=== PATIENT | female | born 1950 | race Caucasian/White ===

== ENCOUNTER 2022-05-03 15:53 | Observation (INO) | payer MEDICAID, OTHER ==
[2022-05-03] MEDS ORDERED: Sodium Chloride 0.9% 10 ML FLUSH Syringe IV PRN (17:30)
[2022-05-03 18:36] LABS: Absolute Neutrophil Ct (ANC) 6.44 x10^3/uL (1.4-6.9); Basophil (Absolute #) 0.04 x10^3/uL (0-0.4); Eosinophil % 1.9 % (0.00-5.0); Eosinophil (Absolute #) 0.17 x10^3/uL (0-0.5); Hematocrit 31.7 % (35-47); Lymphocyte (Absolute #) 1.86 x10^3/uL (1.0-4.6); Lymphocytes % 20.3 % (24.0-44.0); Mean Corpuscular Hemoglobin 20.5 pg (26-32); Mean Corpuscular Hgb Concent. 28.4 g/dL (32-36); Mean Platelet Volume 10.6 fL (7.5-11.0); Monocyte (Absolute #) 0.61 x10^3/uL (0.0-1.3); Monocytes % 6.7 % (0.0-12.0); Neutrophil % 70.4 % (36.0-66.0); Platelet Count 395 x10^3/uL (150-450); Red Cell Distribution Width 17.4 % (11.5-14.0); White Blood Count 9.2 x10^3/uL (4.0-10.5)
[2022-05-03 18:51] LABS: Appearance CLEAR (CLEAR)
[2022-05-03 18:52] LABS: Bilirubin NEGATIVE (NEGATIVE); Glucose >=1000 mg/dL (NEGATIVE); Ketones TRACE (NEGATIVE); Protein,Urine Dip 30 (Negative); RBC NEGATIVE Ery/ul (0-5); Urobilinogen 1 mg/dL (0-1)
[2022-05-03 18:53] LABS: Dipstick done @ ? MAIN LAB; Nitrite NEGATIVE (NEGATIVE)
[2022-05-03 18:56] LABS: Epithelial Cells RARE /HPF (FEW); Hyaline Casts 0-2 /LPF (0-2); Mucus SLIGHT /HPF (NEGATIVE); RBC 0-2 /HPF (0-2); WBC 0-2 /HPF (0-5)
[2022-05-03 18:59] LABS: Urine Cultured Indicated? ORDERED SEPARATELY
[2022-05-03 19:12] LABS: INFLUENZA A NEGATIVE (NEGATIVE); INFLUENZA B NEGATIVE (NEGATIVE); RESPIRATORY SYNCTIAL VIRUS NEGATIVE (Negative); SARS-CoV-2 Xpert Express NEGATIVE (NEGATIVE)
[2022-05-03 19:20] LABS: ALBUMIN 3.8 g/dL (3.5-5.0); ALKALINE PHOSPHATASE 97 U/L (38-126); ANION GAP 16.9 MEQ/L (5-15); BLOOD UREA NITROGEN 14 mg/dL (7-17); CHLORIDE 97 mmol/L (98-107); Calcium 9.4 mg/dL (8.4-10.2); Carbon Dioxide 25 mmol/L (22-30); EST GLOMERULAR FILTRATION RATE > 60.0 ML/MIN; Glucose 295 mg/dL (74-106); Potassium 4.9 mmol/L (3.5-5.1); SGOT/AST 21 U/L (14-36); SGPT/ALT 15 U/L (0-35); SODIUM 134 mmol/L (137-145); Total Protein 7.1 g/dL (6.3-8.2)
[2022-05-03 19:22] LABS: Slide Review 1 YES
[2022-05-03] MEDS: Lasix 40 MG/4 ML IV SCH (20:56)
[2022-05-03] MEDS ORDERED: ZOCOR 20MG PO SCH (22:00)
[2022-05-03] MEDS ORDERED: Cozaar 50 MG PO SCH (22:00)
[2022-05-03] MEDS: ATARAX 25 MG PO SCH (22:28)
[2022-05-03] MEDS: HUMALOG SQ PRN (22:29)
[2022-05-03] MEDS: Lantus Insulin SQ SCH (22:30)
[2022-05-03] MEDS: Sodium Chloride 0.9% 10 ML FLUSH Syringe IV SCH (22:31)
[2022-05-04 05:36] LABS: ALBUMIN 3.6 g/dL (3.5-5.0); ALKALINE PHOSPHATASE 87 U/L (38-126); ANION GAP 10.5 MEQ/L (5-15); BLOOD UREA NITROGEN 18 mg/dL (7-17); CHLORIDE 95 mmol/L (98-107); Calcium 8.8 mg/dL (8.4-10.2); Carbon Dioxide 30 mmol/L (22-30); Creatinine 1 0.63 mg/dL (0.52-1.04); EST GLOMERULAR FILTRATION RATE > 60.0 ML/MIN; Glucose 356 mg/dL (74-106); Potassium 4.1 mmol/L (3.5-5.1); SGOT/AST 17 U/L (14-36); SGPT/ALT 14 U/L (0-35); SODIUM 131 mmol/L (137-145); Total Protein 7.2 g/dL (6.3-8.2)
[2022-05-04] MEDS: Sodium Chloride 0.9% 10 ML FLUSH Syringe IV SCH ×2 (06:26→14:26)
[2022-05-04] MEDS: HUMALOG SQ PRN ×3 (08:07→17:36)
--- NOTE | 2022-05-04 08:09 | PCM.CONS ---
Podiatry HPI - Consult Date of Consultation Date: 05/04/22 Reason for Consult: Bilateral diabetic foot wounds Consulting Provider: VINEET FRANCIS DPM - [facility] History of Present Illness: Leann is a very pleasant 71-year-old female who is seen at bedside this a.m. with her daughter at chair side. Leann speaks very little Montserratian and most of subjective history has been obtained from her daughter. Patient indicates she has had a longstanding history of ulcerations to the distal tip of the toes to the right and left feet. Patient was seen in quick care for some infected ulcerations at the distal tip of the right hallux where there was purulence increase in warmth and a full-thickness wound to the tip of the toe. From there patient was referred to her primary care who took x-rays which demonstrated some indications of osteolytic bone lesions to the distal tip of digits 1 and 2 suggestive of osteomyelitis. Patient's primary care called and patient was sent for direct admit. Patient was seen this a.m. demonstrating no indications of sepsis and no complaints of constitutional symptoms. Patient indicates that there has been longstanding history of ulceration to the tip of the toe which tend to heal and recur over and over again. Patient is unsure if there has been an infection in the past. She currently denies any constitutional symptoms of infection. She denies any other pedal complaints. Language barrier limits subjective examination Medications & Allergies Home Medications: Home Medication List Atorvastatin Calcium [Lipitor 20MG Tablet] 20 mg PO HS 05/03/22 [History Confirmed 05/03/22] Glipizide 2.5 mg [Glucotrol Xl 2.5 MG] 2.5 mg PO BID 05/03/22 [History Confirmed 05/03/22] Insulin Aspart [Novolog] 1 unit SQ TID 05/03/22 [History Confirmed 05/03/22] Insulin Glargine,Hum.rec.anlog [Lantus] 40 unit SQ BID 05/03/22 [History Confirmed 05/03/22] Losartan Potassium [Cozaar] 25 mg PO BID 05/03/22 [History Confirmed 05/03/22] Metformin HCl 500 mg [Glucophage 500 MG] 1,000 mg PO BIDWM 05/03/22 [History Confirmed 05/03/22] hydrOXYzine HCL [Hydroxyzine HCl] 50 mg PO BID 05/03/22 [History Confirmed 05/03/22] Furosemide 20 mg [Lasix 20 mg] 20 mg PO DAILY #30 tablet 05/04/22 [Rx] Levofloxacin [Levofloxacin 500 MG Tablet] 500 mg PO DAILY 10 Days #10 tablet 05/04/22 [Rx] Metoprolol Tartrate 50 mg [Lopressor 50 MG] 50 mg PO BID 05/04/22 [History Confirmed 05/04/22] Potassium Chloride 10 meq PO DAILY #30 tab 05/04/22 [Rx] Allergies/Adverse Reactions: Allergies Allergy/AdvReac Type Severity Reaction Status Date / Time No Known Drug Allergies Allergy Unverified 05/03/22 18:25 - Past Medical History Past Medical History: Yes Cardiac History: Hypertension Endocrine Medical History: Diabetes Type I, Diabetes Type II - Female History Are you now?: No - Social History Smoking Status: Never smoker Physical Exam - General General Appearance: no apparent distress, lethargy - Neuro Neurologic: Epicritic and protopathic (Absent) - Vascular Peripheral Pulses: Posterior tibialis: 0, Dorsalis-Pedis: 2+ Capillary Refill Time: < 3 seconds Varicosities: Negtive Edema: Pitting Edema Degree: 1+ Skin: Supple, not atrophic - Muscular Digital Deformity: hammer toe (Digits 2 through 4 with adductovarus rotation of digits 4 and 5) Joint ROM: Adequate ROM to MTPJ Equinus: Gastorocnemius equinus - Narrative Narrative Physical Exam: Podiatry Physical Exam No wound to second digit of the right foot. Wound right foot with measurements of 1.5 x 1.5. Mild periwound erythema. No indications of cellulitis of the to e. Fibrotic tissue 90% of the wound with granular edge. No hyperkeratotic rim. Results - Labs Lab/Micro Results: Lab Results-Last 24 Hours 05/03/22 05/03/22 05/03/22 Range/Units 18:00 18:00 18:30 WBC 9.2 (4.0-10.5) x10^3/uL RBC 4.40 (4.1-5.4) x10^6/uL Hgb 9.0 L (12.0-16.0) g/dL Hct 31.7 L (35-47) % MCV 72.0 L (78-100) fL MCH 20.5 L (26-32) pg MCHC 28.4 L (32-36) g/dL RDW 17.4 H (11.5-14.0) % Plt Count 395 (150-450) x10^3/uL MPV 10.6 (7.5-11.0) fL Gran % 70.4 H (36.0-66.0) % Immature Gran % (Auto) 0.3 (0.00-0.4) % Nucleat RBC Rel Count 0.0 (0.00-0.1) % Eos # (Auto) 0.17 (0-0.5) x10^3/uL Immature Gran # (Auto) 0.03 (0.00-0.03) x10^3u/L Absolute Lymphs (auto) 1.86 (1.0-4.6) x10^3/uL Absolute Monos (auto) 0.61 (0.0-1.3) x10^3/uL Absolute Nucleated RBC 0.00 (0.00-0.01) x10^3u/L Lymphocytes % 20.3 L (24.0-44.0) % Monocytes % 6.7 (0.0-12.0) % Eosinophils % 1.9 (0.00-5.0) % Basophils % 0.4 (0.0-0.4) % Absolute Granulocytes 6.44 (1.4-6.9) x10^3/uL Basophils # 0.04 (0-0.4) x10^3/uL Sodium (137-145) mmol/L Potassium (3.5-5.1) mmol/L Chloride (98-107) mmol/L Carbon Dioxide (22-30) mmol/L Anion Gap (5-15) MEQ/L BUN (7-17) mg/dL Creatinine (0.52-1.04) mg/dL Estimated GFR ML/MIN Glucose (74-106) mg/dL POC Glucometer (74 to 106) mg/dL Hemoglobin A1c 9.54 H (4.5-6.0) % Calcium (8.4-10.2) mg/dL Total Bilirubin (0.2-1.3) mg/dL AST (14-36) U/L ALT (0-35) U/L Alkaline Phosphatase (38-126) U/L NT-Pro-B Natriuret Pep (0-900) pg/mL Serum Total Protein (6.3-8.2) g/dL Albumin (3.5-5.0) g/dL Urinalys Dipstick Clnc Urine Color (YELLOW) Urine Appearance (CLEAR) Urine pH (5-6) Ur Specific [place] (1.005-1.025) POC Urine Protein Conf (Negative) Urine Ketones (NEGATIVE) Urine Nitrite (NEGATIVE) Urine Bilirubin (NEGATIVE) Urine Urobilinogen (0-1) mg/dL Urine Leukocytes (NEGATIVE) Urine WBC (Auto) (0-5) /HPF Urine RBC (Auto) (0-2) /HPF U Hyaline Cast (Auto) (0-2) /LPF U Epithel Cells (Auto) (FEW) /HPF Urine Bacteria (Auto) (NEGATIVE) /HPF Urine RBC (0-5) Sarbjit/ul Urine Mucus (Auto) (NEGATIVE) /HPF Ur Culture Indicated? Urine Glucose (NEGATIVE) mg/dL Influenza Type A Ag NEGATIVE (NEGATIVE) Influenza Type B Ag NEGATIVE (NEGATIVE) RSV (PCR) NEGATIVE (Negative) SARS-CoV-2 (PCR) NEGATIVE (NEGATIVE) Slides for Path Review YES 05/03/22 05/03/22 05/03/22 Range/Units 18:30 18:45 21:04 WBC (4.0-10.5) x10^3/uL RBC (4.1-5.4) x10^6/uL Hgb (12.0-16.0) g/dL Hct (35-47) % MCV (78-100) fL MCH (26-32) pg MCHC (32-36) g/dL RDW (11.5-14.0) % Plt Count (150-450) x10^3/uL MPV (7.5-11.0) fL Gran % (36.0-66.0) % Immature Gran % (Auto) (0.00-0.4) % Nucleat RBC Rel Count (0.00-0.1) % Eos # (Auto) (0-0.5) x10^3/uL Immature Gran # (Auto) (0.00-0.03) x10^3u/L Absolute Lymphs (auto) (1.0-4.6) x10^3/uL Absolute Monos (auto) (0.0-1.3) x10^3/uL Absolute Nucleated RBC (0.00-0.01) x10^3u/L Lymphocytes % (24.0-44.0) % Monocytes % (0.0-12.0) % Eosinophils % (0.00-5.0) % Basophils % (0.0-0.4) % Absolute Granulocytes (1.4-6.9) x10^3/uL Basophils # (0-0.4) x10^3/uL Sodium 134 L (137-145) mmol/L Potassium 4.9 (3.5-5.1) mmol/L Chloride 97 L (98-107) mmol/L Carbon Dioxide 25 (22-30) mmol/L Anion Gap 16.9 H (5-15) MEQ/L BUN 14 (7-17) mg/dL Creatinine 0.50 L (0.52-1.04) mg/dL Estimated GFR > 60.0 ML/MIN Glucose 295 H (74-106) mg/dL POC Glucometer 295 H (74 to 106) mg/dL Hemoglobin A1c (4.5-6.0) % Calcium 9.4 (8.4-10.2) mg/dL Total Bilirubin 0.30 (0.2-1.3) mg/dL AST 21 (14-36) U/L ALT 15 (0-35) U/L Alkaline Phosphatase 97 (38-126) U/L NT-Pro-B Natriuret Pep (0-900) pg/mL Serum Total Protein 7.1 (6.3-8.2) g/dL Albumin 3.8 (3.5-5.0) g/dL Urinalys Dipstick Clnc MAIN LAB Urine Color YELLOW (YELLOW) Urine Appearance CLEAR (CLEAR) Urine pH 6.0 (5-6) Ur Specific [place] 1.020 (1.005-1.025) POC Urine Protein Conf 30 (Negative) Urine Ketones TRACE (NEGATIVE) Urine Nitrite NEGATIVE (NEGATIVE) Urine Bilirubin NEGATIVE (NEGATIVE) Urine Urobilinogen 1 (0-1) mg/dL Urine Leukocytes NEGATIVE (NEGATIVE) Urine WBC (Auto) 0-2 (0-5) /HPF Urine RBC (Auto) 0-2 (0-2) /HPF U Hyaline Cast (Auto) 0-2 (0-2) /LPF U Epithel Cells (Auto) RARE (FEW) /HPF Urine Bacteria (Auto) NONE (NEGATIVE) /HPF Urine RBC NEGATIVE (0-5) Sarbjit/ul Urine Mucus (Auto) SLIGHT (NEGATIVE) /HPF Ur Culture Indicated? ORDERED SEPARATELY Urine Glucose >=1000 (NEGATIVE) mg/dL Influenza Type A Ag (NEGATIVE) Influenza Type B Ag (NEGATIVE) RSV (PCR) (Negative) SARS-CoV-2 (PCR) (NEGATIVE) Slides for Path Review 05/04/22 05/04/22 05/04/22 Range/Units 05:02 05:02 07:16 WBC (4.0-10.5) x10^3/uL RBC (4.1-5.4) x10^6/uL Hgb (12.0-16.0) g/dL Hct (35-47) % MCV (78-100) fL MCH (26-32) pg MCHC (32-36) g/dL RDW (11.5-14.0) % Plt Count (150-450) x10^3/uL MPV (7.5-11.0) fL Gran % (36.0-66.0) % Immature Gran % (Auto) (0.00-0.4) % Nucleat RBC Rel Count (0.00-0.1) % Eos # (Auto) (0-0.5) x10^3/uL Immature Gran # (Auto) (0.00-0.03) x10^3u/L Absolute Lymphs (auto) (1.0-4.6) x10^3/uL Absolute Monos (auto) (0.0-1.3) x10^3/uL Absolute Nucleated RBC (0.00-0.01) x10^3u/L Lymphocytes % (24.0-44.0) % Monocytes % (0.0-12.0) % Eosinophils % (0.00-5.0) % Basophils % (0.0-0.4) % Absolute Granulocytes (1.4-6.9) x10^3/uL Basophils # (0-0.4) x10^3/uL Sodium 131 L (137-145) mmol/L Potassium 4.1 (3.5-5.1) mmol/L Chloride 95 L (98-107) mmol/L Carbon Dioxide 30 (22-30) mmol/L Anion Gap 10.5 (5-15) MEQ/L BUN 18 H (7-17) mg/dL Creatinine 0.63 (0.52-1.04) mg/dL Estimated GFR > 60.0 ML/MIN Glucose 356 H (74-106) mg/dL POC Glucometer 365 H (74 to 106) mg/dL Hemoglobin A1c (4.5-6.0) % Calcium 8.8 (8.4-10.2) mg/dL Total Bilirubin 0.40 (0.2-1.3) mg/dL AST 17 (14-36) U/L ALT 14 (0-35) U/L Alkaline Phosphatase 87 (38-126) U/L NT-Pro-B Natriuret Pep 440 (0-900) pg/mL Serum Total Protein 7.2 (6.3-8.2) g/dL Albumin 3.6 (3.5-5.0) g/dL Urinalys Dipstick Clnc Urine Color (YELLOW) Urine Appearance (CLEAR) Urine pH (5-6) Ur Specific [place] (1.005-1.025) POC Urine Protein Conf (Negative) Urine Ketones (NEGATIVE) Urine Nitrite (NEGATIVE) Urine Bilirubin (NEGATIVE) Urine Urobilinogen (0-1) mg/dL Urine Leukocytes (NEGATIVE) Urine WBC (Auto) (0-5) /HPF Urine RBC (Auto) (0-2) /HPF U Hyaline Cast (Auto) (0-2) /LPF U Epithel Cells (Auto) (FEW) /HPF Urine Bacteria (Auto) (NEGATIVE) /HPF Urine RBC (0-5) Sarbjit/ul Urine Mucus (Auto) (NEGATIVE) /HPF Ur Culture Indicated? Urine Glucose (NEGATIVE) mg/dL Influenza Type A Ag (NEGATIVE) Influenza Type B Ag (NEGATIVE) RSV (PCR) (Negative) SARS-CoV-2 (PCR) (NEGATIVE) Slides for Path Review Accuchecks Date 05/04/22 Time 07:35 Time 22:00 Assessment/Plan (1) Osteomyelitis of right foot Current Visit: Yes Status: Acute Qualifiers: Osteomyelitis type: other acute Qualified Code(s): M86.171 - Other acute osteomyelitis, right ankle and foot Assessment & Plan: Initial patient examination and evaluation. Radiographs reviewed demonstrating osteomyelitic appearance of digits 1 and 2 of the right right foot at the distal tips. Currently there is no wound to the distal tip of the right toe which leads me to believe that this issue is chronic and pressure related and the soft tissue is subsequently healed. Patient does have hammertoes to digits 2 through 5 to the bilateral lower extremity for this reason recommendation for flexor tenotomy was suggested in order to alleviate the pressure. Once again it was stressed that that this will not eradicate the infection however could potentially take out the pressure to the tip of the toe and as a result prevent further ulceration from taking place. If infection stems from the bone to the soft tissue there is nothing to stop this at this time. With assessment of the hallux assessment was made and the wound was probed which probe directly to the bone and just past the distal phalanx of the hallux. At this time recommendation was made for a aggressive incision and drainage with bone debridement and allowing for the wound to be open over the course of the next week in order for infection to drain out and p.o. antibiotics. Patient and daughter are amenable at this time to this plan. Patient is agreeable to a procedure at bedside at this time as she is largely neuropathic and nonseptic. Consent for flexor tenotomy of the second digit right foot as well as incision and drainage and bone debridement of the hallux right foot. Consent is signed and scanned into [place] from paper chart. At this time the right lower extremity was prepped and draped in the typical sterile fashion and lowered onto the surgical field a 10 cc injection was injected into the second digit of the right foot and an additional 10 cc injection of one-to-one mixture of 1% lidocaine plain 0.5% bupivacaine plain was injected into the hallux in a hallux block fashion for a total of 20 cc of local anesthetic following adequate time for local anesthesia to take place a 18-gauge needle was utilized to perform the flexor tenotomy of the second digit Kelikian test was performed in order to assess if there is further contracture of the second digit which was not appreciated at this time. Dressings were applied to this digit in order to prevent transfer of infection at this time a cotton tip applicator was utilized to probe the wound to the hallux which was then deemed inadequate for just a bone biopsy due to the purulent drainage which was cultured immediately and handed off the field for assessment at this time a 15 blade was utilized to make a 3-1 fishmouth incision at the distal tip of the toe extending approximately 3 cm across opening up the distal aspect of the toe and rongeuring out the distal phalanx and hopefully any of the infectious process along with the toe at this time copious amounts of sterile saline were utilized to flush the surgical site bone was sent for pathological and microbiological assessment in order to guide antibiotic regimen going forward. Following this trauma sutures were utilized with 3-0 nylon in order to coapt the edges of the wound and allowing a central defect for infection to continue to drain over the course of the next several days at this time a dressing consisting of Betadine Adaptic 4 x 4 Curlex and Rishi was applied to the hallux and secured along the midfoot. Postoperative orders as indicated in the patient's discharge chart consisting of: 1dressing changes daily iodine Adaptic 4 x 4 Yasemin and Coban 2stitches to remain clean dry and intact with no soaking of the wound site 3full weightbearing to the right lower extremity in surgical sandal 4p.o. levofloxacin 500 mg daily for 10 days 5return for reassessment in 1 week's time and possible delayed primary closure of the wound in clinic Patient okay for discharge from my standpoint as long as all criteria met and medicine agrees with DC at this time. 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
[2022-05-04] MEDS ORDERED: Lantus Insulin SQ SCH (10:00)
[2022-05-04] MEDS ORDERED: Cozaar 50 MG PO SCH (10:00)
[2022-05-04] MEDS: Lantus Insulin SQ SCH (10:02)
[2022-05-04] MEDS: Lasix 40 MG/4 ML IV SCH (10:02)
[2022-05-04] MEDS: ATARAX 25 MG PO SCH (10:02)
[2022-05-04] MEDS ORDERED: Lopressor 50 MG PO SCH ×3 (11:47→22:00)
[2022-05-04 12:24] VITALS: O2SAT 97
--- NOTE | 2022-05-04 13:15 | PCM.HP ---
History of Present Illness - Chief Complaint Chief Complaint: Osteomyelitis of toe,DM,Diabetic Foot Wounds History of Present Illness: is a 71 year old female pt with no local MD with diabetes and CHF who was admitted directly for osteomyelitis. She is visiting her daughter and noted a pinpoint area on her R great toe two days ago; by yesterday it had enlarged, had some pus on it and they took pt to . She had XR done and was found to have osteomyelitis. The INSURANCE SALES SUPERVISOR called me and we determined pt should be admitted for further w/u and treatment. I spoke with Dr. Agarwal, podiatry, and he asked that we not start the pt on antibiotics until he could possibly do a bedside biopsy. Also deferred MRI. Pt had edematous legs, so was given lasix 40mg IV on admission; will be repeated this morning. Her renal function remains nl. She denies sensation to her feet and is having no pain. Pt does not speak [place] (speaks Welsh). Her daughter was present in the room to translate. - Review of Systems Constitutional: No Fever Cardiac: Edema Skin: Other (great toe changes as in HPI) All Other Systems: Reviewed and Negative Medications & Allergies Home Medications: Home Medication List Atorvastatin Calcium [Lipitor 20MG Tablet] 20 mg PO HS 05/03/22 [History Confirmed 05/03/22] Glipizide 2.5 mg [Glucotrol Xl 2.5 MG] 2.5 mg PO BID 05/03/22 [History Confirmed 05/03/22] Insulin Aspart [Novolog] 1 unit SQ TID 05/03/22 [History Confirmed 05/03/22] Insulin Glargine,Hum.rec.anlog [Lantus] 40 unit SQ BID 05/03/22 [History Confirmed 05/03/22] Losartan Potassium [Cozaar] 25 mg PO BID 05/03/22 [History Confirmed 05/03/22] Metformin HCl 500 mg [Glucophage 500 MG] 1,000 mg PO BIDWM 05/03/22 [History Confirmed 05/03/22] cephALEXin [Cephalexin] 500 mg PO TID 05/03/22 [History Confirmed 05/03/22] hydrOXYzine HCL [Hydroxyzine HCl] 50 mg PO BID 05/03/22 [History Confirmed 05/03/22] Metoprolol Tartrate 50 mg [Lopressor 50 MG] 50 mg PO BID 05/04/22 [History Confirmed 05/04/22] Allergies/Adverse Reactions: Allergies Allergy/AdvReac Type Severity Reaction Status Date / Time No Known Drug Allergies Allergy Unverified 05/03/22 18:25 - Past Medical History Past Medical History: Yes Cardiac History: Hypertension Endocrine Medical History: Diabetes Type I, Diabetes Type II - Female History Are you now?: No - Social History Smoking Status: Never smoker - Physical Exam Vital Signs: Vital Signs - 24 hr Temp Pulse Resp BP Pulse Ox 05/04/22 12:00 97.9 F 84 16 145/65 97 05/04/22 07:34 98.2 F 79 16 137/65 98 05/04/22 04:00 97.1 F 81 18 126/60 95 05/04/22 00:00 97.1 F 83 19 113/57 99 05/03/22 20:00 97.3 F 85 17 138/61 99 05/03/22 18:35 97.8 F 86 18 153/65 99 General Appearance: no apparent distress, alert, obese Neurologic Exam: oriented x 3, cooperative, normal mood/affect Eye Exam: eyes nml inspection Ears, Nose, Throat Exam: moist mucous membranes Neck Exam: normal inspection, No lymphadenopathy, No thyromegaly Respiratory Exam: normal breath sounds, lungs clear, No crackles/rales, No rhonchi, No wheezing Cardiovascular Exam: regular rate/rhythm, normal heart sounds, No murmur Gastrointestinal/Abdomen Exam: soft, normal bowel sounds, No tenderness, No distention, No mass, No guarding, No rebound Back Exam: normal inspection, No rash Extremity Exam: other (R foot, great toe with distal lesion approx 3 cm with white surrounding skin. L great toe with small distal lesion) Skin Exam: warm, dry, No rash Results - Labs Lab/Micro Results: Lab Results-Last 24 Hours 05/03/22 05/03/22 05/03/22 Range/Units 18:00 18:00 18:30 WBC 9.2 (4.0-10.5) x10^3/uL RBC 4.40 (4.1-5.4) x10^6/uL Hgb 9.0 L (12.0-16.0) g/dL Hct 31.7 L (35-47) % MCV 72.0 L (78-100) fL MCH 20.5 L (26-32) pg MCHC 28.4 L (32-36) g/dL RDW 17.4 H (11.5-14.0) % Plt Count 395 (150-450) x10^3/uL MPV 10.6 (7.5-11.0) fL Gran % 70.4 H (36.0-66.0) % Immature Gran % (Auto) 0.3 (0.00-0.4) % Nucleat RBC Rel Count 0.0 (0.00-0.1) % Eos # (Auto) 0.17 (0-0.5) x10^3/uL Immature Gran # (Auto) 0.03 (0.00-0.03) x10^3u/L Absolute Lymphs (auto) 1.86 (1.0-4.6) x10^3/uL Absolute Monos (auto) 0.61 (0.0-1.3) x10^3/uL Absolute Nucleated RBC 0.00 (0.00-0.01) x10^3u/L Lymphocytes % 20.3 L (24.0-44.0) % Monocytes % 6.7 (0.0-12.0) % Eosinophils % 1.9 (0.00-5.0) % Basophils % 0.4 (0.0-0.4) % Absolute Granulocytes 6.44 (1.4-6.9) x10^3/uL Basophils # 0.04 (0-0.4) x10^3/uL Sodium (137-145) mmol/L Potassium (3.5-5.1) mmol/L Chloride (98-107) mmol/L Carbon Dioxide (22-30) mmol/L Anion Gap (5-15) MEQ/L BUN (7-17) mg/dL Creatinine (0.52-1.04) mg/dL Estimated GFR ML/MIN Glucose (74-106) mg/dL POC Glucometer (74 to 106) mg/dL Hemoglobin A1c 9.54 H (4.5-6.0) % Calcium (8.4-10.2) mg/dL Total Bilirubin (0.2-1.3) mg/dL AST (14-36) U/L ALT (0-35) U/L Alkaline Phosphatase (38-126) U/L NT-Pro-B Natriuret Pep (0-900) pg/mL Serum Total Protein (6.3-8.2) g/dL Albumin (3.5-5.0) g/dL Urinalys Dipstick Clnc Urine Color (YELLOW) Urine Appearance (CLEAR) Urine pH (5-6) Ur Specific [place] (1.005-1.025) POC Urine Protein Conf (Negative) Urine Ketones (NEGATIVE) Urine Nitrite (NEGATIVE) Urine Bilirubin (NEGATIVE) Urine Urobilinogen (0-1) mg/dL Urine Leukocytes (NEGATIVE) Urine WBC (Auto) (0-5) /HPF Urine RBC (Auto) (0-2) /HPF U Hyaline Cast (Auto) (0-2) /LPF U Epithel Cells (Auto) (FEW) /HPF Urine Bacteria (Auto) (NEGATIVE) /HPF Urine RBC (0-5) Sarbjit/ul Urine Mucus (Auto) (NEGATIVE) /HPF Ur Culture Indicated? Urine Glucose (NEGATIVE) mg/dL Influenza Type A Ag NEGATIVE (NEGATIVE) Influenza Type B Ag NEGATIVE (NEGATIVE) RSV (PCR) NEGATIVE (Negative) SARS-CoV-2 (PCR) NEGATIVE (NEGATIVE) Slides for Path Review YES 05/03/22 05/03/22 05/03/22 Range/Units 18:30 18:45 21:04 WBC (4.0-10.5) x10^3/uL RBC (4.1-5.4) x10^6/uL Hgb (12.0-16.0) g/dL Hct (35-47) % MCV (78-100) fL MCH (26-32) pg MCHC (32-36) g/dL RDW (11.5-14.0) % Plt Count (150-450) x10^3/uL MPV (7.5-11.0) fL Gran % (36.0-66.0) % Immature Gran % (Auto) (0.00-0.4) % Nucleat RBC Rel Count (0.00-0.1) % Eos # (Auto) (0-0.5) x10^3/uL Immature Gran # (Auto) (0.00-0.03) x10^3u/L Absolute Lymphs (auto) (1.0-4.6) x10^3/uL Absolute Monos (auto) (0.0-1.3) x10^3/uL Absolute Nucleated RBC (0.00-0.01) x10^3u/L Lymphocytes % (24.0-44.0) % Monocytes % (0.0-12.0) % Eosinophils % (0.00-5.0) % Basophils % (0.0-0.4) % Absolute Granulocytes (1.4-6.9) x10^3/uL Basophils # (0-0.4) x10^3/uL Sodium 134 L (137-145) mmol/L Potassium 4.9 (3.5-5.1) mmol/L Chloride 97 L (98-107) mmol/L Carbon Dioxide 25 (22-30) mmol/L Anion Gap 16.9 H (5-15) MEQ/L BUN 14 (7-17) mg/dL Creatinine 0.50 L (0.52-1.04) mg/dL Estimated GFR > 60.0 ML/MIN Glucose 295 H (74-106) mg/dL POC Glucometer 295 H (74 to 106) mg/dL Hemoglobin A1c (4.5-6.0) % Calcium 9.4 (8.4-10.2) mg/dL Total Bilirubin 0.30 (0.2-1.3) mg/dL AST 21 (14-36) U/L ALT 15 (0-35) U/L Alkaline Phosphatase 97 (38-126) U/L NT-Pro-B Natriuret Pep (0-900) pg/mL Serum Total Protein 7.1 (6.3-8.2) g/dL Albumin 3.8 (3.5-5.0) g/dL Urinalys Dipstick Clnc MAIN LAB Urine Color YELLOW (YELLOW) Urine Appearance CLEAR (CLEAR) Urine pH 6.0 (5-6) Ur Specific [place] 1.020 (1.005-1.025) POC Urine Protein Conf 30 (Negative) Urine Ketones TRACE (NEGATIVE) Urine Nitrite NEGATIVE (NEGATIVE) Urine Bilirubin NEGATIVE (NEGATIVE) Urine Urobilinogen 1 (0-1) mg/dL Urine Leukocytes NEGATIVE (NEGATIVE) Urine WBC (Auto) 0-2 (0-5) /HPF Urine RBC (Auto) 0-2 (0-2) /HPF U Hyaline Cast (Auto) 0-2 (0-2) /LPF U Epithel Cells (Auto) RARE (FEW) /HPF Urine Bacteria (Auto) NONE (NEGATIVE) /HPF Urine RBC NEGATIVE (0-5) Sarbjit/ul Urine Mucus (Auto) SLIGHT (NEGATIVE) /HPF Ur Culture Indicated? ORDERED SEPARATELY Urine Glucose >=1000 (NEGATIVE) mg/dL Influenza Type A Ag (NEGATIVE) Influenza Type B Ag (NEGATIVE) RSV (PCR) (Negative) SARS-CoV-2 (PCR) (NEGATIVE) Slides for Path Review 05/04/22 05/04/22 05/04/22 Range/Units 05:02 05:02 07:16 WBC (4.0-10.5) x10^3/uL RBC (4.1-5.4) x10^6/uL Hgb (12.0-16.0) g/dL Hct (35-47) % MCV (78-100) fL MCH (26-32) pg MCHC (32-36) g/dL RDW (11.5-14.0) % Plt Count (150-450) x10^3/uL MPV (7.5-11.0) fL Gran % (36.0-66.0) % Immature Gran % (Auto) (0.00-0.4) % Nucleat RBC Rel Count (0.00-0.1) % Eos # (Auto) (0-0.5) x10^3/uL Immature Gran # (Auto) (0.00-0.03) x10^3u/L Absolute Lymphs (auto) (1.0-4.6) x10^3/uL Absolute Monos (auto) (0.0-1.3) x10^3/uL Absolute Nucleated RBC (0.00-0.01) x10^3u/L Lymphocytes % (24.0-44.0) % Monocytes % (0.0-12.0) % Eosinophils % (0.00-5.0) % Basophils % (0.0-0.4) % Absolute Granulocytes (1.4-6.9) x10^3/uL Basophils # (0-0.4) x10^3/uL Sodium 131 L (137-145) mmol/L Potassium 4.1 (3.5-5.1) mmol/L Chloride 95 L (98-107) mmol/L Carbon Dioxide 30 (22-30) mmol/L Anion Gap 10.5 (5-15) MEQ/L BUN 18 H (7-17) mg/dL Creatinine 0.63 (0.52-1.04) mg/dL Estimated GFR > 60.0 ML/MIN Glucose 356 H (74-106) mg/dL POC Glucometer 365 H (74 to 106) mg/dL Hemoglobin A1c (4.5-6.0) % Calcium 8.8 (8.4-10.2) mg/dL Total Bilirubin 0.40 (0.2-1.3) mg/dL AST 17 (14-36) U/L ALT 14 (0-35) U/L Alkaline Phosphatase 87 (38-126) U/L NT-Pro-B Natriuret Pep 440 (0-900) pg/mL Serum Total Protein 7.2 (6.3-8.2) g/dL Albumin 3.6 (3.5-5.0) g/dL Urinalys Dipstick Clnc Urine Color (YELLOW) Urine Appearance (CLEAR) Urine pH (5-6) Ur Specific [place] (1.005-1.025) POC Urine Protein Conf (Negative) Urine Ketones (NEGATIVE) Urine Nitrite (NEGATIVE) Urine Bilirubin (NEGATIVE) Urine Urobilinogen (0-1) mg/dL Urine Leukocytes (NEGATIVE) Urine WBC (Auto) (0-5) /HPF Urine RBC (Auto) (0-2) /HPF U Hyaline Cast (Auto) (0-2) /LPF U Epithel Cells (Auto) (FEW) /HPF Urine Bacteria (Auto) (NEGATIVE) /HPF Urine RBC (0-5) Sarbjit/ul Urine Mucus (Auto) (NEGATIVE) /HPF Ur Culture Indicated? Urine Glucose (NEGATIVE) mg/dL Influenza Type A Ag (NEGATIVE) Influenza Type B Ag (NEGATIVE) RSV (PCR) (Negative) SARS-CoV-2 (PCR) (NEGATIVE) Slides for Path Review 05/04/22 Range/Units 11:33 WBC (4.0-10.5) x10^3/uL RBC (4.1-5.4) x10^6/uL Hgb (12.0-16.0) g/dL Hct (35-47) % MCV (78-100) fL MCH (26-32) pg MCHC (32-36) g/dL RDW (11.5-14.0) % Plt Count (150-450) x10^3/uL MPV (7.5-11.0) fL Gran % (36.0-66.0) % Immature Gran % (Auto) (0.00-0.4) % Nucleat RBC Rel Count (0.00-0.1) % Eos # (Auto) (0-0.5) x10^3/uL Immature Gran # (Auto) (0.00-0.03) x10^3u/L Absolute Lymphs (auto) (1.0-4.6) x10^3/uL Absolute Monos (auto) (0.0-1.3) x10^3/uL Absolute Nucleated RBC (0.00-0.01) x10^3u/L Lymphocytes % (24.0-44.0) % Monocytes % (0.0-12.0) % Eosinophils % (0.00-5.0) % Basophils % (0.0-0.4) % Absolute Granulocytes (1.4-6.9) x10^3/uL Basophils # (0-0.4) x10^3/uL Sodium (137-145) mmol/L Potassium (3.5-5.1) mmol/L Chloride (98-107) mmol/L Carbon Dioxide (22-30) mmol/L Anion Gap (5-15) MEQ/L BUN (7-17) mg/dL Creatinine (0.52-1.04) mg/dL Estimated GFR ML/MIN Glucose (74-106) mg/dL POC Glucometer 359 H (74 to 106) mg/dL Hemoglobin A1c (4.5-6.0) % Calcium (8.4-10.2) mg/dL Total Bilirubin (0.2-1.3) mg/dL AST (14-36) U/L ALT (0-35) U/L Alkaline Phosphatase (38-126) U/L NT-Pro-B Natriuret Pep (0-900) pg/mL Serum Total Protein (6.3-8.2) g/dL Albumin (3.5-5.0) g/dL Urinalys Dipstick Clnc Urine Color (YELLOW) Urine Appearance (CLEAR) Urine pH (5-6) Ur Specific [place] (1.005-1.025) POC Urine Protein Conf (Negative) Urine Ketones (NEGATIVE) Urine Nitrite (NEGATIVE) Urine Bilirubin (NEGATIVE) Urine Urobilinogen (0-1) mg/dL Urine Leukocytes (NEGATIVE) Urine WBC (Auto) (0-5) /HPF Urine RBC (Auto) (0-2) /HPF U Hyaline Cast (Auto) (0-2) /LPF U Epithel Cells (Auto) (FEW) /HPF Urine Bacteria (Auto) (NEGATIVE) /HPF Urine RBC (0-5) Sarbjit/ul Urine Mucus (Auto) (NEGATIVE) /HPF Ur Culture Indicated? Urine Glucose (NEGATIVE) mg/dL Influenza Type A Ag (NEGATIVE) Influenza Type B Ag (NEGATIVE) RSV (PCR) (Negative) SARS-CoV-2 (PCR) (NEGATIVE) Slides for Path Review Accuchecks Date 05/04/22 Date 05/04/22 Time 11:44 Time 07:35 Time 22:00 - Radiology Impressions Radiology Exams & Impressions: Radiology Procedures Category Date Time Status LITZY/LIMB PRESSURES BILATERAL [US] Urgent Exams 05/04/22 14:00 Ordered ARTERIAL BILAT LOWER EXTREMITY [US] Urgent Exams 05/04/22 14:00 Ordered ECHO W/2D AND DOPPLER [US] Routine Exams 05/04/22 14:00 Ordered Assessment/Plan (1) Osteomyelitis of right foot Current Visit: Yes Status: Acute Qualifiers: Osteomyelitis type: other acute Qualified Code(s): M86.171 - Other acute osteomyelitis, right ankle and foot Assessment & Plan: Per Dr. Agarwal - thank you. Code(s): M86.9 - OSTEOMYELITIS, UNSPECIFIED (2) Hyperglycemia due to type 2 diabetes mellitus Current Visit: Yes Status: Chronic Qualifiers: Diabetes mellitus salvage determiner insulin use: with senior living use Qualified Code(s): E11.65 - Type 2 diabetes mellitus with hyperglycemia; Z79.4 - intermediate (current) use of insulin Assessment & Plan: a1c pending. Will resume her usual lantus dose as she is eating well. Code(s): E11.65 - TYPE 2 DIABETES MELLITUS WITH HYPERGLYCEMIA (3) Peripheral sensory neuropathy due to type 2 diabetes mellitus Current Visit: Yes Status: Chronic Code(s): E11.42 - TYPE 2 DIABETES MELLITUS WITH DIABETIC POLYNEUROPATHY (4) Leg edema Current Visit: Yes Status: Acute Assessment & Plan: likely CHF, good response to diuretic. Echo today. Code(s): R60.0 - LOCALIZED EDEMA
[2022-05-04 16:54] VITALS: BP 123/60; PULSE 77
--- NOTE | 2022-05-04 17:21 | PCM.DS ---
Discharge Summary Date of Admission: 05/03/22 17:41 Admitting Physician: VERO HUNT Consults: Consults on Case 05/03/22 17:57 Consult Podiatry ROUTINE Primary Care Provider: VERO HUNT Allergies Allergies No Known Drug Allergies Allergy (Unverified 05/03/22 18:25) Hospital Summary - Hospital Course Hospital Course: Pt is 71 yo female with no local MD and with DM who was admitted with osteomy elitis of the toe. Dr. Agarwal did bedside biopsy and she will go home on po antibiotics. Had LE edema, so home on 20mg lasix po daily after diuresing here with 40mg IV daily. Will f/u with Dr. Agarwal next week and with me next week or the week after. c/o some itching on arms and upper chest but no rash is present. - Vitals & Intake/Output Vital Signs: Vital Signs Temperature 97.9 F 05/04/22 16:00 Pulse Rate 77 05/04/22 16:00 Respiratory Rate 16 05/04/22 16:00 Blood Pressure 123/60 05/04/22 16:00 O2 Sat by Pulse Oximetry 97 05/04/22 16:00 Intake & Output: Intake & Output 05/02/22 05/03/22 05/04/22 05/05/22 11:59 11:59 11:59 11:59 Intake Total 620 380 Output Total 2350 Balance -1730 380 Weight 93 kg 93 kg - Lab Result Diagrams: 05/03/22 18:00 05/04/22 05:02 Lab Results-Last 24 Hrs: Lab Results-Last 24 Hours 05/03/22 05/03/22 05/03/22 Range/Units 18:00 18:00 18:30 WBC 9.2 (4.0-10.5) x10^3/uL RBC 4.40 (4.1-5.4) x10^6/uL Hgb 9.0 L (12.0-16.0) g/dL Hct 31.7 L (35-47) % MCV 72.0 L (78-100) fL MCH 20.5 L (26-32) pg MCHC 28.4 L (32-36) g/dL RDW 17.4 H (11.5-14.0) % Plt Count 395 (150-450) x10^3/uL MPV 10.6 (7.5-11.0) fL Gran % 70.4 H (36.0-66.0) % Immature Gran % (Auto) 0.3 (0.00-0.4) % Nucleat RBC Rel Count 0.0 (0.00-0.1) % Eos # (Auto) 0.17 (0-0.5) x10^3/uL Immature Gran # (Auto) 0.03 (0.00-0.03) x10^3u/L Absolute Lymphs (auto) 1.86 (1.0-4.6) x10^3/uL Absolute Monos (auto) 0.61 (0.0-1.3) x10^3/uL Absolute Nucleated RBC 0.00 (0.00-0.01) x10^3u/L Lymphocytes % 20.3 L (24.0-44.0) % Monocytes % 6.7 (0.0-12.0) % Eosinophils % 1.9 (0.00-5.0) % Basophils % 0.4 (0.0-0.4) % Absolute Granulocytes 6.44 (1.4-6.9) x10^3/uL Basophils # 0.04 (0-0.4) x10^3/uL Sodium (137-145) mmol/L Potassium (3.5-5.1) mmol/L Chloride (98-107) mmol/L Carbon Dioxide (22-30) mmol/L Anion Gap (5-15) MEQ/L BUN (7-17) mg/dL Creatinine (0.52-1.04) mg/dL Estimated GFR ML/MIN Glucose (74-106) mg/dL POC Glucometer (74 to 106) mg/dL Hemoglobin A1c 9.54 H (4.5-6.0) % Calcium (8.4-10.2) mg/dL Total Bilirubin (0.2-1.3) mg/dL AST (14-36) U/L ALT (0-35) U/L Alkaline Phosphatase (38-126) U/L NT-Pro-B Natriuret Pep (0-900) pg/mL Serum Total Protein (6.3-8.2) g/dL Albumin (3.5-5.0) g/dL Urinalys Dipstick Clnc Urine Color (YELLOW) Urine Appearance (CLEAR) Urine pH (5-6) Ur Specific [place] (1.005-1.025) POC Urine Protein Conf (Negative) Urine Ketones (NEGATIVE) Urine Nitrite (NEGATIVE) Urine Bilirubin (NEGATIVE) Urine Urobilinogen (0-1) mg/dL Urine Leukocytes (NEGATIVE) Urine WBC (Auto) (0-5) /HPF Urine RBC (Auto) (0-2) /HPF U Hyaline Cast (Auto) (0-2) /LPF U Epithel Cells (Auto) (FEW) /HPF Urine Bacteria (Auto) (NEGATIVE) /HPF Urine RBC (0-5) Sarbjit/ul Urine Mucus (Auto) (NEGATIVE) /HPF Ur Culture Indicated? Urine Glucose (NEGATIVE) mg/dL Influenza Type A Ag NEGATIVE (NEGATIVE) Influenza Type B Ag NEGATIVE (NEGATIVE) RSV (PCR) NEGATIVE (Negative) SARS-CoV-2 (PCR) NEGATIVE (NEGATIVE) Slides for Path Review YES 05/03/22 05/03/22 05/03/22 Range/Units 18:30 18:45 21:04 WBC (4.0-10.5) x10^3/uL RBC (4.1-5.4) x10^6/uL Hgb (12.0-16.0) g/dL Hct (35-47) % MCV (78-100) fL MCH (26-32) pg MCHC (32-36) g/dL RDW (11.5-14.0) % Plt Count (150-450) x10^3/uL MPV (7.5-11.0) fL Gran % (36.0-66.0) % Immature Gran % (Auto) (0.00-0.4) % Nucleat RBC Rel Count (0.00-0.1) % Eos # (Auto) (0-0.5) x10^3/uL Immature Gran # (Auto) (0.00-0.03) x10^3u/L Absolute Lymphs (auto) (1.0-4.6) x10^3/uL Absolute Monos (auto) (0.0-1.3) x10^3/uL Absolute Nucleated RBC (0.00-0.01) x10^3u/L Lymphocytes % (24.0-44.0) % Monocytes % (0.0-12.0) % Eosinophils % (0.00-5.0) % Basophils % (0.0-0.4) % Absolute Granulocytes (1.4-6.9) x10^3/uL Basophils # (0-0.4) x10^3/uL Sodium 134 L (137-145) mmol/L Potassium 4.9 (3.5-5.1) mmol/L Chloride 97 L (98-107) mmol/L Carbon Dioxide 25 (22-30) mmol/L Anion Gap 16.9 H (5-15) MEQ/L BUN 14 (7-17) mg/dL Creatinine 0.50 L (0.52-1.04) mg/dL Estimated GFR > 60.0 ML/MIN Glucose 295 H (74-106) mg/dL POC Glucometer 295 H (74 to 106) mg/dL Hemoglobin A1c (4.5-6.0) % Calcium 9.4 (8.4-10.2) mg/dL Total Bilirubin 0.30 (0.2-1.3) mg/dL AST 21 (14-36) U/L ALT 15 (0-35) U/L Alkaline Phosphatase 97 (38-126) U/L NT-Pro-B Natriuret Pep (0-900) pg/mL Serum Total Protein 7.1 (6.3-8.2) g/dL Albumin 3.8 (3.5-5.0) g/dL Urinalys Dipstick Clnc MAIN LAB Urine Color YELLOW (YELLOW) Urine Appearance CLEAR (CLEAR) Urine pH 6.0 (5-6) Ur Specific [place] 1.020 (1.005-1.025) POC Urine Protein Conf 30 (Negative) Urine Ketones TRACE (NEGATIVE) Urine Nitrite NEGATIVE (NEGATIVE) Urine Bilirubin NEGATIVE (NEGATIVE) Urine Urobilinogen 1 (0-1) mg/dL Urine Leukocytes NEGATIVE (NEGATIVE) Urine WBC (Auto) 0-2 (0-5) /HPF Urine RBC (Auto) 0-2 (0-2) /HPF U Hyaline Cast (Auto) 0-2 (0-2) /LPF U Epithel Cells (Auto) RARE (FEW) /HPF Urine Bacteria (Auto) NONE (NEGATIVE) /HPF Urine RBC NEGATIVE (0-5) Sarbjit/ul Urine Mucus (Auto) SLIGHT (NEGATIVE) /HPF Ur Culture Indicated? ORDERED SEPARATELY Urine Glucose >=1000 (NEGATIVE) mg/dL Influenza Type A Ag (NEGATIVE) Influenza Type B Ag (NEGATIVE) RSV (PCR) (Negative) SARS-CoV-2 (PCR) (NEGATIVE) Slides for Path Review 05/04/22 05/04/22 05/04/22 Range/Units 05:02 05:02 07:16 WBC (4.0-10.5) x10^3/uL RBC (4.1-5.4) x10^6/uL Hgb (12.0-16.0) g/dL Hct (35-47) % MCV (78-100) fL MCH (26-32) pg MCHC (32-36) g/dL RDW (11.5-14.0) % Plt Count (150-450) x10^3/uL MPV (7.5-11.0) fL Gran % (36.0-66.0) % Immature Gran % (Auto) (0.00-0.4) % Nucleat RBC Rel Count (0.00-0.1) % Eos # (Auto) (0-0.5) x10^3/uL Immature Gran # (Auto) (0.00-0.03) x10^3u/L Absolute Lymphs (auto) (1.0-4.6) x10^3/uL Absolute Monos (auto) (0.0-1.3) x10^3/uL Absolute Nucleated RBC (0.00-0.01) x10^3u/L Lymphocytes % (24.0-44.0) % Monocytes % (0.0-12.0) % Eosinophils % (0.00-5.0) % Basophils % (0.0-0.4) % Absolute Granulocytes (1.4-6.9) x10^3/uL Basophils # (0-0.4) x10^3/uL Sodium 131 L (137-145) mmol/L Potassium 4.1 (3.5-5.1) mmol/L Chloride 95 L (98-107) mmol/L Carbon Dioxide 30 (22-30) mmol/L Anion Gap 10.5 (5-15) MEQ/L BUN 18 H (7-17) mg/dL Creatinine 0.63 (0.52-1.04) mg/dL Estimated GFR > 60.0 ML/MIN Glucose 356 H (74-106) mg/dL POC Glucometer 365 H (74 to 106) mg/dL Hemoglobin A1c (4.5-6.0) % Calcium 8.8 (8.4-10.2) mg/dL Total Bilirubin 0.40 (0.2-1.3) mg/dL AST 17 (14-36) U/L ALT 14 (0-35) U/L Alkaline Phosphatase 87 (38-126) U/L NT-Pro-B Natriuret Pep 440 (0-900) pg/mL Serum Total Protein 7.2 (6.3-8.2) g/dL Albumin 3.6 (3.5-5.0) g/dL Urinalys Dipstick Clnc Urine Color (YELLOW) Urine Appearance (CLEAR) Urine pH (5-6) Ur Specific [place] (1.005-1.025) POC Urine Protein Conf (Negative) Urine Ketones (NEGATIVE) Urine Nitrite (NEGATIVE) Urine Bilirubin (NEGATIVE) Urine Urobilinogen (0-1) mg/dL Urine Leukocytes (NEGATIVE) Urine WBC (Auto) (0-5) /HPF Urine RBC (Auto) (0-2) /HPF U Hyaline Cast (Auto) (0-2) /LPF U Epithel Cells (Auto) (FEW) /HPF Urine Bacteria (Auto) (NEGATIVE) /HPF Urine RBC (0-5) Sarbjit/ul Urine Mucus (Auto) (NEGATIVE) /HPF Ur Culture Indicated? Urine Glucose (NEGATIVE) mg/dL Influenza Type A Ag (NEGATIVE) Influenza Type B Ag (NEGATIVE) RSV (PCR) (Negative) SARS-CoV-2 (PCR) (NEGATIVE) Slides for Path Review 05/04/22 05/04/22 Range/Units 11:33 16:49 WBC (4.0-10.5) x10^3/uL RBC (4.1-5.4) x10^6/uL Hgb (12.0-16.0) g/dL Hct (35-47) % MCV (78-100) fL MCH (26-32) pg MCHC (32-36) g/dL RDW (11.5-14.0) % Plt Count (150-450) x10^3/uL MPV (7.5-11.0) fL Gran % (36.0-66.0) % Immature Gran % (Auto) (0.00-0.4) % Nucleat RBC Rel Count (0.00-0.1) % Eos # (Auto) (0-0.5) x10^3/uL Immature Gran # (Auto) (0.00-0.03) x10^3u/L Absolute Lymphs (auto) (1.0-4.6) x10^3/uL Absolute Monos (auto) (0.0-1.3) x10^3/uL Absolute Nucleated RBC (0.00-0.01) x10^3u/L Lymphocytes % (24.0-44.0) % Monocytes % (0.0-12.0) % Eosinophils % (0.00-5.0) % Basophils % (0.0-0.4) % Absolute Granulocytes (1.4-6.9) x10^3/uL Basophils # (0-0.4) x10^3/uL Sodium (137-145) mmol/L Potassium (3.5-5.1) mmol/L Chloride (98-107) mmol/L Carbon Dioxide (22-30) mmol/L Anion Gap (5-15) MEQ/L BUN (7-17) mg/dL Creatinine (0.52-1.04) mg/dL Estimated GFR ML/MIN Glucose (74-106) mg/dL POC Glucometer 359 H 397 H (74 to 106) mg/dL Hemoglobin A1c (4.5-6.0) % Calcium (8.4-10.2) mg/dL Total Bilirubin (0.2-1.3) mg/dL AST (14-36) U/L ALT (0-35) U/L Alkaline Phosphatase (38-126) U/L NT-Pro-B Natriuret Pep (0-900) pg/mL Serum Total Protein (6.3-8.2) g/dL Albumin (3.5-5.0) g/dL Urinalys Dipstick Clnc Urine Color (YELLOW) Urine Appearance (CLEAR) Urine pH (5-6) Ur Specific [place] (1.005-1.025) POC Urine Protein Conf (Negative) Urine Ketones (NEGATIVE) Urine Nitrite (NEGATIVE) Urine Bilirubin (NEGATIVE) Urine Urobilinogen (0-1) mg/dL Urine Leukocytes (NEGATIVE) Urine WBC (Auto) (0-5) /HPF Urine RBC (Auto) (0-2) /HPF U Hyaline Cast (Auto) (0-2) /LPF U Epithel Cells (Auto) (FEW) /HPF Urine Bacteria (Auto) (NEGATIVE) /HPF Urine RBC (0-5) Sarbjit/ul Urine Mucus (Auto) (NEGATIVE) /HPF Ur Culture Indicated? Urine Glucose (NEGATIVE) mg/dL Influenza Type A Ag (NEGATIVE) Influenza Type B Ag (NEGATIVE) RSV (PCR) (Negative) SARS-CoV-2 (PCR) (NEGATIVE) Slides for Path Review Micro Results-Entire Visit: Accuchecks Date 05/04/22 Date 05/04/22 Date 05/04/22 Time 16:54 Time 11:44 Time 07:35 Time 22:00 - Radiology Exams Ordered Rad Exams-Entire Visit: Radiology Procedures Category Date Time Status LITZY/LIMB PRESSURES BILATERAL [US] Urgent Exams 05/04/22 14:00 Ordered ARTERIAL BILAT LOWER EXTREMITY [US] Urgent Exams 05/04/22 14:00 Ordered ECHO W/2D AND DOPPLER [US] Routine Exams 05/04/22 14:00 Ordered Discharge Exam General Appearance: no apparent distress, alert, obese Neurologic Exam: oriented x 3, cooperative, other (speaks Irish) Eye Exam: eyes nml inspection Ears, Nose, Throat Exam: moist mucous membranes Neck Exam: normal inspection Respiratory Exam: normal breath sounds, lungs clear, No crackles/rales, No rhonchi, No wheezing Cardiovascular Exam: regular rate/rhythm, normal heart sounds, No murmur Extremity Exam: other (R foot bandaged and in boot) Skin Exam: warm, dry, other (no excoriations; not itching during interview), No rash Final Diagnosis/Problem List - Final Discharge Diagnosis/Problem (1) Osteomyelitis of right foot Current Visit: Yes Status: Acute Assessment & Plan: per Dr. Agarwal, thank you, home on po antibiotics. Pt is clinically stable. Code(s): M86.9 - OSTEOMYELITIS, UNSPECIFIED (2) Hyperglycemia due to type 2 diabetes mellitus Current Visit: Yes Status: Chronic Code(s): E11.65 - TYPE 2 DIABETES MELLITUS WITH HYPERGLYCEMIA (3) Peripheral sensory neuropathy due to type 2 diabetes mellitus Current Visit: Yes Status: Chronic Code(s): E11.42 - TYPE 2 DIABETES MELLITUS WITH DIABETIC POLYNEUROPATHY (4) Leg edema Current Visit: Yes Status: Acute Assessment & Plan: Home on 20mg lasix po daily, at least until next week when f/u in office. Likely CHF, but echo pending. Code(s): R60.0 - LOCALIZED EDEMA - Discharge Disposition: Home, Self-Care Condition: Good Prescriptions: New Furosemide 20 mg [Lasix 20 mg] 20 mg PO DAILY #30 tablet Potassium Chloride 10 meq PO DAILY #30 tab Continue Insulin Glargine,Hum.rec.anlog [Lantus] 40 unit SQ BID hydrOXYzine HCL [Hydroxyzine HCl] 50 mg PO BID Losartan Potassium [Cozaar] 25 mg PO BID Atorvastatin Calcium [Lipitor 20MG Tablet] 20 mg PO HS Metformin HCl 500 mg [Glucophage 500 MG] 1,000 mg PO BIDWM Insulin Aspart [Novolog] 1 unit SQ TID Glipizide 2.5 mg [Glucotrol Xl 2.5 MG] 2.5 mg PO BID Metoprolol Tartrate 50 mg [Lopressor 50 MG] 50 mg PO BID Discontinued cephALEXin [Cephalexin] 500 mg PO TID Follow up with: VERO HUNT [Primary Care Provider] -
--- NOTE | 2022-05-05 08:04 | XRAY ---
Indication: Postop bone biopsy. Comparison: One day earlier 2 nonweightbearing views right foot demonstrates new 1st/2nd toe bandage material limiting exam. Distal great toe demonstrates interval partial resection/biopsy again with soft tissue swelling. Incidental osteopenia and tiny plantar heel spur. Remaining foot unremarkable.
== END 2022-05-04 18:25 | disposition home or self-care (01) ==
LOC: MED SURG 17:03 → UNDOADMIN 17:03 → EDSTATUS 17:07 → MED SURG 17:41
PROVIDERS: ADMIT Family Medicine; ATTEND Family Medicine
DX: M86.171 Other acute osteomyelitis, right ankle and foot (principal); E11.65 Type 2 diabetes mellitus with hyperglycemia; E11.42 Type 2 diabetes mellitus with diabetic polyneuropathy; E11.621 Type 2 diabetes mellitus with foot ulcer; R60.0 Localized edema; I10 Essential (primary) hypertension; R42 Dizziness and giddiness; F41.9 Anxiety disorder, unspecified; F32.A Depression, unspecified; Z79.4 Long term (current) use of insulin; Z79.899 Other long term (current) drug therapy; Z20.828 Contact with and (suspected) exposure to other viral communicable diseases
CPT/HCPCS: 0241U; 28005; 28232; 36415; 73620; 80053; 81015; 82947; 83036; 83880; 85025; 87040; 87070; 87075; 87086; 87116; 87206; G0378; 99219; J1817; J1940; A9270-GY